=== PATIENT | female | born 1935 | race Caucasian/White ===

== ENCOUNTER 2024-03-14 09:06 | Outpatient (CLI) | payer MEDICARE | END 2024-03-14 09:07 | disposition home or self-care (01) | LOC: CSHWCC 09:06 | PROVIDERS: ATTEND Nurse Practitioner Family | DX: E11.622 Type 2 diabetes mellitus with other skin ulcer (principal); I70.233 Atherosclerosis of native arteries of right leg with ulceration of ankle; I70.242 Atherosclerosis of native arteries of left leg with ulceration of calf; L97.312 Non-pressure chronic ulcer of right ankle with fat layer exposed; L97.222 Non-pressure chronic ulcer of left calf with fat layer exposed ==

== ENCOUNTER 2024-03-21 15:05 | Outpatient (CLI) | payer MEDICARE | END 2024-03-21 15:06 | disposition home or self-care (01) | LOC: CSHWCC 15:05 | PROVIDERS: ATTEND Nurse Practitioner Family | DX: E11.622 Type 2 diabetes mellitus with other skin ulcer (principal); L97.312 Non-pressure chronic ulcer of right ankle with fat layer exposed; L97.222 Non-pressure chronic ulcer of left calf with fat layer exposed; I70.233 Atherosclerosis of native arteries of right leg with ulceration of ankle; I70.242 Atherosclerosis of native arteries of left leg with ulceration of calf | CPT/HCPCS: 11042; 99212; G0463 ==

== ENCOUNTER 2024-03-28 15:09 | Outpatient (CLI) | payer MEDICARE | END 2024-03-28 15:10 | disposition home or self-care (01) | LOC: CSHWCC 15:09 | PROVIDERS: ATTEND Nurse Practitioner Family | DX: E11.622 Type 2 diabetes mellitus with other skin ulcer (principal); I70.233 Atherosclerosis of native arteries of right leg with ulceration of ankle; L97.312 Non-pressure chronic ulcer of right ankle with fat layer exposed | CPT/HCPCS: 11042 ==